=== PATIENT | male | born 1935 | race Hispanic/Latino ===

== ENCOUNTER → 2018-03-08 | Day surgery (SDC) | payer MEDICARE, OTHER ==
[~2018-03-08] MED LIST: FENTANYL CITRATE/PF 100MCG/2 ML INJ ONE; FINASTERIDE5 MG PO; GABAPENTIN300 MG PO; LEVOCETIRIZINE D5 MG PO; MIDAZOLAM HCL 2 MG/2 ML VIAL ONE; NORVASC5 MG PO; OR PHACO EYE KIT ONE; PREOP PHACO EYE KIT ONE
[2018-03-08 15:00] VITALS: BP 161/76
== END | disposition home or self-care (01) ==
LOC: OR 11:47
PROVIDERS: ATTEND Ophthalmology
DX: H25.12 Age-related nuclear cataract, left eye (principal); I10 Essential (primary) hypertension; K21.9 Gastro-esophageal reflux disease without esophagitis; M26.609 Unspecified temporomandibular joint disorder, unspecified side; M19.90 Unspecified osteoarthritis, unspecified site; Z87.891 Personal history of nicotine dependence; Z88.0 Allergy status to penicillin; N40.0 Benign prostatic hyperplasia without lower urinary tract symptoms
CPT/HCPCS: 66984; J2250; V2632

== ENCOUNTER → 2018-03-29 | Day surgery (SDC) | payer MEDICARE, OTHER ==
--- OUTSIDE RECORDS SUMMARY | 2018-03-29 11:02 | XMS REPORT ---
Author Author [facility] Address Unknown Phone Unavailable Care Team Providers Care Gerontological Nurse Practitioner Name Role Phone Unavailable Unavailable Payers Payer Name Policy Type Policy Number Effective Date Expiration Date Problems This patient has no known problems. Allergies, Adverse Reactions, Alerts Allergy Name Allergy Type Status Severity Reaction(s) Onset Date Inactive Date Treating Clinician Comments Penicillins DA Active [place] 2017-06-30 00:00:00 Medications This patient has no known medications.
[2018-03-29 14:30] VITALS: BP 162/77
== END | disposition home or self-care (01) ==
LOC: OR 11:00
PROVIDERS: ATTEND Ophthalmology
DX: H25.11 Age-related nuclear cataract, right eye (principal); I10 Essential (primary) hypertension; K21.9 Gastro-esophageal reflux disease without esophagitis; N40.0 Benign prostatic hyperplasia without lower urinary tract symptoms; Z88.0 Allergy status to penicillin
CPT/HCPCS: 66984; J2250; V2632